=== PATIENT | male | born 1975 | race Native Hawaiian/Other Pacific Islander ===

== ENCOUNTER 2020-07-01 19:04 | Emergency (ER) | payer BC ==
[~2020-07-01] VITALS: Ht 170.2 cm; Wt 111.1 kg
[2020-07-01 19:11] VITALS: TEMP 99.6
[2020-07-01] MEDS ORDERED: BUPR150T PO (19:33)
[2020-07-01 20:40] LABS: PLATELET COUNT 310 K/uL (142-355)
[2020-07-01 20:46] LABS: POTASSIUM 3.4 mmol/L (3.6-5.2); SODIUM 138 mmol/L (136-145)
[2020-07-01 21:31] VITALS: BP 147/69
== END 2020-07-01 21:33 | disposition home or self-care (01) ==
LOC: ED 19:04
DX: R07.89 Other chest pain (principal)
CPT/HCPCS: 36415; 80053; 84484; 85027; 93005; 99284

== ENCOUNTER 2020-10-27 09:51 | Observation (INO) | payer BC ==
[~2020-10-27] VITALS: Ht 175.3 cm; Wt 105.4 kg
[~2020-10-27 09:51] MED LIST: BUPR150T PO
[2020-10-27 18:44] LABS: PLATELET COUNT 281 K/uL (142-355)
[2020-10-27 18:51] LABS: POTASSIUM 4.1 mmol/L (3.6-5.2)
[2020-10-27 20:00] VITALS: BP 129/62; TEMP 98.2
[2020-10-27 21:41] VITALS: BP 164/71; TEMP 98.2; Ht 175.3 cm; Wt 105.4 kg
[2020-10-28] VITALS: BP 133/79; TEMP 99.7
[2020-10-28 04:00] VITALS: BP 123/61; TEMP 99.8
[2020-10-28 08:00] VITALS: BP 129/66; TEMP 98
[2020-10-28 11:26] LABS: PLATELET COUNT 258 K/uL (142-355)
[2020-10-28 11:36] LABS: POTASSIUM 3.8 mmol/L (3.6-5.2)
[2020-10-28 12:00] VITALS: BP 123/60; TEMP 98.8
[2020-10-28 16:00] VITALS: BP 128/67; TEMP 98.9
[2020-10-28 20:00] VITALS: BP 128/77; TEMP 99.4
[2020-10-29 00:07] VITALS: BP 134/76; TEMP 98.6
[2020-10-29 04:00] VITALS: BP 132/74; TEMP 98.9
[2020-10-29 05:49] LABS: PLATELET COUNT 257 K/uL (142-355)
[2020-10-29 06:06] LABS: POTASSIUM 3.9 mmol/L (3.6-5.2)
[2020-10-29 08:00] VITALS: BP 134/67; TEMP 98.9
[2020-10-29 12:00] VITALS: BP 156/656; TEMP 97.5
[2020-10-29 16:00] VITALS: BP 148/56; TEMP 97.9
[2020-10-29 20:00] VITALS: BP 143/68; TEMP 98.9
[2020-10-30] VITALS: BP 141/72; TEMP 98.1
[2020-10-30 04:00] VITALS: BP 130/73; TEMP 98.5
[2020-10-30 08:00] VITALS: BP 140/61; TEMP 98.3
[2020-10-30 12:00] VITALS: BP 113/69; TEMP 97.6
== END 2020-10-30 13:25 | disposition home or self-care (01) ==
LOC: CT 09:51 → MED/SURG 17:31
PROVIDERS: ADMIT Family Medicine; ATTEND Family Medicine
DX: K56.699 Other intestinal obstruction unspecified as to partial versus complete obstruction (principal); E86.0 Dehydration; R10.13 Epigastric pain; R10.32 Left lower quadrant pain; D45 Polycythemia vera; K52.89 Other specified noninfective gastroenteritis and colitis; I10 Essential (primary) hypertension; G47.39 Other sleep apnea; E66.8 Other obesity; R11.2 Nausea with vomiting, unspecified; R91.1 Solitary pulmonary nodule
CPT/HCPCS: 36415; 80053; 81000; 83630; 85027; 87015; 87040; 87045; 87328; 87329; 87899; 93005; 94760; 96365; 96366; 96367; 96375; 99220; G0378; J0744; J1170; J2550; J2765; Q9963

== ENCOUNTER 2021-06-29 09:34 | Outpatient (CLI) | payer BC ==
[2021-06-29 12:01] LABS: POTASSIUM 3.8 mmol/L (3.6-5.2)
== END 2021-06-29 19:07 | disposition home or self-care (01) ==
LOC: RAD 09:34
PROVIDERS: ATTEND Family Medicine
DX: Z03.89 Encounter for observation for other suspected diseases and conditions ruled out (principal)
CPT/HCPCS: 80053; 82728; 85379; 86140

== ENCOUNTER 2021-06-30 11:16 | Outpatient (CLI) | payer BC, OTHER ==
[~2021-06-30] VITALS: Ht 175.3 cm; Wt 108.9 kg
== END 2021-06-30 20:16 | disposition home or self-care (01) ==
LOC: INF 11:16
PROVIDERS: ATTEND Family Medicine
DX: Z23 Encounter for immunization (principal); U07.1 COVID-19
CPT/HCPCS: 96365; M0244

== ENCOUNTER 2022-03-16 12:40 | Outpatient (CLI) | payer BC | END 2022-03-16 19:04 | disposition home or self-care (01) | LOC: CT 12:40 | PROVIDERS: ATTEND Nurse Practitioner Family | DX: R10.32 Left lower quadrant pain (principal) | CPT/HCPCS: Q9963 ==

== ENCOUNTER 2023-05-23 09:01 | Outpatient (CLI) | payer BC ==
[2023-05-23 09:23] LABS: POTASSIUM 3.4 mmol/L (3.6-5.2)
== END 2023-05-23 19:56 | disposition home or self-care (01) ==
LOC: LAB 09:01
PROVIDERS: ATTEND Family Medicine
DX: U07.1 COVID-19 (principal)
CPT/HCPCS: 80053